=== PATIENT | female | born 1975 | race Asian ===

== ENCOUNTER → 2016-11-07 | Outpatient (CLI) | payer OTHER ==
[~2016-11-07] MED LIST: COLACE100 MG PO
[2016-11-07 12:39] LABS: HEMOGLOBIN 9.6 gm/dl (12.3-15.3); RED BLOOD COUNT 4.24 M/UL (4.00-5.10); WHITE BLOOD COUNT 8.7 K/UL (4.5-11.0)
[2016-11-07 12:48] LABS: BUN/CREATININE RATIO 12 (0-10)
== END ==
LOC: GENOP 12:07
PROVIDERS: Obstetrics & Gynecology
DX: Z01.818 Encounter for other preprocedural examination (principal); O30.003 Twin pregnancy, unspecified number of placenta and unspecified number of amniotic sacs, third trimester; Z3A.36 36 weeks gestation of pregnancy
CPT/HCPCS: 36415; 80048; 81001; 85025; J7030

== ENCOUNTER 2016-11-08 05:38 | Inpatient (IN) | payer OTHER ==
[~2016-11-08] VITALS: Ht 167.6 cm; Wt 76.7 kg
[2016-11-09 03:42] LABS: HEMOGLOBIN 7.6 gm/dl (12.3-15.3)
== END 2016-11-10 15:36 | disposition home or self-care (01) | DRG 765 ==
LOC: OB 05:38
PROVIDERS: ADMIT Obstetrics & Gynecology
PROC: 10D00Z1 Extraction of Products of Conception, Low, Open Approach (ICD-10-PCS; principal; 2016-11-08 07:30)
DX: O60.14X1 Preterm labor third trimester with preterm delivery third trimester, fetus 1 (principal); O30.003 Twin pregnancy, unspecified number of placenta and unspecified number of amniotic sacs, third trimester; O60.14X2 Preterm labor third trimester with preterm delivery third trimester, fetus 2; O32.8XX2 Maternal care for other malpresentation of fetus, fetus 2; Z3A.36 36 weeks gestation of pregnancy; Z37.2 Twins, both liveborn; Z28.21 Immunization not carried out because of patient refusal
CPT/HCPCS: 82800; 82962; 85014; 85018; C9113; J0690; J1885; J2270; J2274; J2405; J2590; J2765; J3010; J7030; J7120

== ENCOUNTER → 2021-03-16 | Outpatient (CLI) | payer OTHER ==
[~2021-03-16] MED LIST changes: +IBUPROFEN600 MG PO; +LORTAB 5-325 M1 EACH PO; +PRENATAL VITAM1 EAC8 PO; +ZOFRAN 8 MG TAB8 MG PO
== END ==
LOC: KOH-I 12:30
DX: M79.671 Pain in right foot (principal)
CPT/HCPCS: 73630

== ENCOUNTER 2021-06-13 17:42 | Emergency (ER) | payer OTHER ==
[2021-06-13 19:51] LABS: RED BLOOD COUNT 4.79 M/UL (4.00-5.10); WHITE BLOOD COUNT 8.9 K/UL (4.5-11.0)
[2021-06-13 20:12] LABS: BUN/CREATININE RATIO 12 (0-10)
[2021-06-13] MEDS ORDERED: REGLAN10 MG PO (21:31)
[2021-06-13] MEDS ORDERED: MACROBID 100 M100 MG PO (21:31)
[2021-06-13] MEDS ORDERED: BENTYL 20MG TAB20 MG PO (21:31)
== END 2021-06-13 21:58 | disposition home or self-care (01) ==
LOC: ER1 17:42
PROVIDERS: Physician Assistant
DX: O21.0 Mild hyperemesis gravidarum (principal); O23.91 Unspecified genitourinary tract infection in pregnancy, first trimester; Z3A.09 9 weeks gestation of pregnancy
CPT/HCPCS: 80053; 81001; 83690; 84702; 85025; 87086; 96374; 99284; J2765

== ENCOUNTER 2022-01-02 16:54 | Inpatient (IN) | payer OTHER ==
[~2022-01-02] VITALS: Ht 167.6 cm; Wt 83.5 kg
[~2022-01-02 16:54] MED LIST changes: +BENTYL 20MG TAB20 MG PO; +MACROBID 100 M100 MG PO; +REGLAN10 MG PO
[2022-01-02 17:59] LABS: HEMOGLOBIN 12.3 gm/dl (12.3-15.3); RED BLOOD COUNT 4.36 M/UL (4.00-5.10); WHITE BLOOD COUNT 9.4 K/UL (4.5-11.0)
[2022-01-03] MEDS ORDERED: PROCARDIA 10 MG10 MG GT (02:56)
[2022-01-03] MEDS ORDERED: PRENATAL VITAM1 EAC3 PO (02:56)
[2022-01-03] MEDS ORDERED: IBUPROFEN600 MG PO (14:57)
[2022-01-03] MEDS ORDERED: HYDROCODON-ACE1 EAC4 PO (14:57)
[2022-01-03] MEDS ORDERED: COLACE 100MG C100 MG PO (14:57)
[2022-01-04 06:33] LABS: HEMOGLOBIN 12.9 gm/dl (12.3-15.3)
== END 2022-01-04 18:54 | disposition home or self-care (01) | DRG 807 ==
LOC: GENOP 16:54 → OB 17:20
PROVIDERS: Obstetrics & Gynecology; ADMIT Obstetrics & Gynecology
PROC: 10E0XZZ Delivery of Products of Conception, External Approach (ICD-10-PCS; principal; 2022-01-03)
PROC: 10907ZC Drainage of Amniotic Fluid, Therapeutic from Products of Conception, Via Natural or Artificial Opening (ICD-10-PCS; 2022-01-03)
PROC: 3E033VJ Introduction of Other Hormone into Peripheral Vein, Percutaneous Approach (ICD-10-PCS; 2022-01-03)
PROC: 0HQ9XZZ Repair Perineum Skin, External Approach (ICD-10-PCS; 2022-01-03)
DX: O10.92 Unspecified pre-existing hypertension complicating childbirth (principal); Z37.0 Single live birth; O70.0 First degree perineal laceration during delivery; Z83.3 Family history of diabetes mellitus; O34.211 Maternal care for low transverse scar from previous cesarean delivery; O99.824 Streptococcus B carrier state complicating childbirth; Z3A.37 37 weeks gestation of pregnancy; Z98.890 Other specified postprocedural states; Z28.311 Partially vaccinated for COVID-19
CPT/HCPCS: 36415; 81001; 82800; 85014; 85018; 85025; J2590